=== PATIENT | male | born 1960 | race Caucasian/White ===

== ENCOUNTER 2023-11-19 21:14 | Emergency (ER) | payer MEDICARE ==
[2023-11-19] MEDS: Lidocaine 1% 5 ML VIAL INJECT ONE (23:06)
[2023-11-19] MEDS: Diphtheria,Pertussis(Acell),Tetanus Vaccine 0.5 ML Syringe IM ONE (23:17)
== END 2023-11-19 23:45 | disposition home or self-care (01) ==
LOC: JP.ED 21:14
DX: S60.551A Superficial foreign body of right hand, initial encounter (principal); Z23 Encounter for immunization; W45.8XXA Other foreign body or object entering through skin, initial encounter
CPT/HCPCS: 90471; 90715; 99282-25; 99283